=== PATIENT | female | born 1995 | race Caucasian/White ===

== ENCOUNTER 2019-11-30 08:45 | Inpatient (IN) | payer OTHER ==
[2019-11-30 10:28] LABS: BASO % 0.2 % (0-2.0); EOS % 0.1 % (0-4.5); HEMOGLOBIN 9.6 GM/dL (10.7-15.3); LYMPH % 21.6 % (8-40); MCH 26.9 pg (25.7-33.7); MEAN CELL VOLUME 83.9 fl (80-96); MEAN PLT VOLUME 9.1 fl (7.5-11.1); NEUT % 71.1 % (42.8-82.8); PLATELET COUNT 216 K/MM3 (134-434); RBC 3.58 M/mm3 (3.60-5.2)
[2019-11-30 10:59] LABS: ALBUMIN 2.4 g/dl (3.4-5.0); BILIRUBIN,TOTAL 0.3 mg/dL (0.2-1); BLOOD UREA NITROGEN 10.3 mg/dL (7-18); CALCIUM 8.2 mg/dL (8.5-10.1); CREATININE 0.5 mg/dL (0.55-1.3); POTASSIUM 4.6 mmol/L (3.5-5.1); TOT PROT 5.7 g/dl (6.4-8.2); URIC ACID 4.5 mg/dL (2.6-7.2)
[2019-11-30] MEDS ORDERED: ACETAMINOPHEN 325 MG TABLET (FP) PO ONE (11:21)
[2019-11-30] MEDS ORDERED: ACETAMINOPHEN 325 MG TABLET (FP) ONE (11:26)
[2019-11-30] MEDS ORDERED: DINOPROSTONE 10 MG VAGINAL SUPPOSITORY VG ONE (12:51)
[2019-11-30 14:16] VITALS: BMI 29.7
[2019-11-30 14:45] LABS: ACTIVATED PTT 26.3 SECONDS (25.2-36.5); INR 0.9 (0.83-1.09); PROTHROMBIN TIME (PATIENT) 10.6 SEC (9.7-13.0)
[2019-12-01] MEDS ORDERED: BUTORPHANOL TARTRATE 1 MG/ML VIAL IVPB ONE (00:06)
[2019-12-01] MEDS ORDERED: PROMETHAZINE HCL 25 MG/1 ML VIAL IVPB ONE (00:06)
[2019-12-01] MEDS ORDERED: DINOPROSTONE 10 MG VAGINAL SUPPOSITORY VG ONE (00:06)
--- NOTE | 2019-12-01 00:06 | PN ---
Progress Note, Labor Vaginal Exam #1 Labor Exam Date: 12/01/19 Labor Exam Time: 00:05 Heart Rate (range): Cat I Dilatation: 1 Effacement (%): 0 Amniotic Membrane Status: Intact Presentation: Vertex/Position Station: -3 Remarks: Pt uncomfortable Cervidil removed, new one placed Stadol now Discussed epidural going forward as she has a low pain tolerance Chao Sharp MD
[2019-12-01] MEDS ORDERED: BUTORPHANOL TARTRATE 2 MG/ML VIAL ONE (00:36)
[2019-12-01] MEDS ORDERED: PROMETHAZINE HCL 25 MG/1 ML VIAL ONE (00:36)
[2019-12-01] MEDS: ELECTROLYTE-148 SOLN 1,000 ML IV SCH ×2 (00:38→15:00)
--- NOTE | 2019-12-01 14:07 | PN ---
Progress Note (short form) - Note Progress Note: 24 yrs , 37.6/7 wks admitted 11/30/19 for Mild preclempsia induction of labpr x 2 cervidil were inserted 2nd cervidil removed at 2.00PM cx 1cm/40%/mi vx -3 pelvis adequate . edema Trace Reflexes normal Selected Entries 11/30/19 11/30/19 11/30/19 19:00 20:00 22:00 Temperature Blood Pressure 142/86 132/83 134/91 11/30/19 12/01/19 12/01/19 23:00 08:00 09:00 Temperature 98.4 F Blood Pressure 132/75 141/92 136/89 Laboratory Tests 11/30/19 11/30/19 11/30/19 09:48 09:58 09:58 Hgb 9.6 L Hct 30.0 L D Plt Count 216 Uric Acid 4.5 AST 20 ALT 18 Protein/Creatinin Ratio 0.5 pt does not have any headache. no c/o cramps . uc 8-10 min FHR 150 , cat-1 IMP : 38 weeks today ,mild preclempsia, HELLP work up neg , BP 124- 142 systolic / 79-92 diastolic , BP max 141/92, for induction of labpr Plan : I discussed options of continuing, induction process with cytotec followed by pitocin may take longer time , or option of c/section r/b/a explained pt wants to still continue trial of labor Rx po cytotec 25 mcg q 6h 4 doses
--- NOTE | 2019-12-01 14:59 | HP ---
Past Medical History - Primary Care Physician PCP:: David Rosario - Admission Chief Complaint: Headache History of Present Illness: Patient presented to the ER following episode of severe headache and elevated BPs in 150'2/90's at home. Patient reports measuring BPs at home for a couple of weeks due to prior episode of SCHILLING. Documented BP in ER on arrival was in mild range. Patient reports headache slightly improved. She denies CP, SOB, N/V, blurry vision/scotomata, epigastric pain, VB, LOF, and regular contractions. She reports +FM and denies taking anything at home for headache. 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 No: Bronchitis, Cancer, COPD, O2 Dependent, Pneumonia, Previously Intubated, Pulmonary Embolus, Pulmonary Fibrosis, Sleep Apnea, Other Gastrointestinal: No: Ascites, Cancer, Constipation, Crohn's Disease, D iverticulitis, Diverticulosis, Esophageal Varices, Gastritis, GERD, GI Bleed, Hemorrhoids, Hiatal Hernia, Inflamatory Bowel Disease, Irritable Bowel Disease, Pancreatitis, Peptic Ulcer Disease, Ulcerative Colitis, Other Hepatobiliary: No: Cirrhosis, Cholelithiasis, Cholecystitis, Choledocholithiasis, Hepatitis A, Hepatitis B, Hepatitis C, Other Renal/: No: Renal Failure, Renal Inusuff, BPH, Cancer, Hematuria, Hemodialysis, Neurogenic Bladder, Renal Calculi, UTI, Other Reproductive: No: Ectopic , Endometriosis, Fibroids, PID, Polycystic Ovary Syndrome, Postmenopausal, Other ...: 2 ...Para: 0 ...Term: 0 ...: 0 ...Spon : 1 ...Induced : 0 ...Living Children: 0 ...LMP: 03/10/19 ... Weeks Gestation by Dates: 37.6 ...EDC by Dates: 12/15/19 ...EDC by Sono: 12/21/19 Heme/Onc: No: Anemia, B12 Deficiency, Bleeding Disorder, Cancer, Current Chemotherapy, Current Radiation Therapy, Hemochromatosis, Hypercoaguable State, Myeloproliferative Synd, Sickle Cell Disease, Sickle Cell Trait, Thrombocytopenia, Other Infectious Disease: No: AIDS, C-Diff, Herpes Zoster, HIV, MRSA, STD's, Tuberculosis, VREF, Other Psych: No: Addictions, Anxiety, Bipolar, Depression, Panic, Psychosis, Schizophrenia, Other Musculoskeletal: No: Bursitis, Chronic low back pain, Hemiparesis, Hemiplegia, Osteoarthritis, Paraplegia, Other Rheumatology: No: Fibromyalgia, Gout, Lupus, Rheumatoid Arthritis, Sarcoidosis, Vasculitis, Other ENT: No: Allergic Rhinitis, Sinusitis, Other Endocrine: No: Letcher's Disease, Center's Disease, Diabetes Insipidus, Diabet es Mellitus, Hyperparathyroidism, Hyperthyroidism, Hypothyroidism, Osteopenia, SIADH, Other Dermatology: No: Basal Cell, Cellulitis, Eczema, Melanoma, Psoriasis, Squamous Cell, Other - Past Surgical History Hx Myomectomy: No Hx Transabdominal Cerclage: No Additional Surgical History: D&C for H/O molar - Smoking History Smoking history: Never smoked Have you smoked in the past 12 months: No Aproximately how many cigarettes per day: 0 - Alcohol/Substance Use Hx Alcohol Use: No - Social History History of Recent Travel: No Home Medications - Allergies Allergies/Adverse Reactions: Allergies Allergy/AdvReac Type Severity Reaction Status Date / Time Penicillins Allergy Severe Swelling Verified 11/30/19 09:43 - Home Medications Home Medications: Ambulatory Orders Ferrous Sulfate 1 tab PO DAILY 11/30/19 Pnv No.95/Ferrous Fum/Folic AC [ Caplet] 1 tab PO DAILY 11/30/19 Family Medical History Family History: Unremarkable Review of Systems Findings/Remarks: mild temporal headache bilaterally - Review of Systems Constitutional: reports: No Symptoms Eyes: reports: No Symptoms HENT: reports: No Symptoms Neck: reports: No Symptoms Cardiovascular: reports: No Symptoms Respiratory: reports: No Symptoms Gastrointestinal: reports: No Symptoms Genitourinary: reports: No Symptoms Breasts: reports: No Symptoms Reported Musculoskeletal: reports: No Symptoms Integumentary: reports: No Symptoms Neurological: reports: No Symptoms Endocrine: reports: No Symptoms Hematology/Lymphatic: reports: No Symptoms Psychiatric: reports: No Symptoms Physical Exam - Maternity Vital Signs: Vital Signs Temperature 97.9 F 11/30/19 09:59 Pulse Rate 89 11/30/19 12:00 Respiratory Rate 17 11/30/19 12:00 Blood Pressure 124/84 11/30/19 12:00 O2 Sat by Pulse Oximetry (%) 100 11/30/19 12:00 Constitutional: Yes: No Distress HENT: Yes: Atraumatic Neck: Yes: Supple Cardiovascular: Yes: Regular Rate and Rhythm - Abdominal Exam/OB Number of Fetuses: Single Presentation: Vertex Contractions: Yes Regularity: Irregular Intensity: Unaware Monitor Mode: External Heart Rate (range): 130 Category: I Accelerations: Uniform Decelerations: None - Vaginal Exam/OB Vaginal Bleeding: No Speculum Exam: No Dilatation (cm): 0.5 Effacement (%): 30 Amniotic Membrane Status: Intact Presentation: Vertex/Position (by clement's) Station: -3 (cervidil placed in vaginal vault) - Physical Exam Musculoskeletal: Yes: WNL Extremities: Yes: WNL Edema: Yes Edema: LLE: Trace, RLE: Trace Integumentary: Yes: WNL Deep Tendon Reflex Grade: Normal +2 (no clonus noted) ...Motor Strength: WNL Psychiatric: Yes: Alert, Oriented - Labs Lab Results: CBC, BMP 11/30/19 09:58 11/30/19 09:58 Imaging - Results Ultrasound: Report Reviewed Problem List - Problems (1) Pre-eclampsia affecting , antepartum Code(s): O14.90 - UNSPECIFIED PRE-ECLAMPSIA, UNSPECIFIED TRIMESTER Assessment/Plan 24 y/o @ 37.6wks by LMP congruent with 1st trimester sono presented to the hospital following new onset of severe headache and hypertensive episode. BPs in the hospital are in normal to mild range and mild headache. PEC labs revealed mild anemia and P/C of 0.5. Patient denies having elevated BPs in the past while self-measuring at home. Presentation is consistent with PEC without sevre features. summary reviewed and EFW is 3000g as per recent official sono. Patient was counseled regarding diagnosis as well as indication for IOL. induction of labor explained along with its risks and complications. All questions answered and induction initiated. -Monitor BP -Continuous monitoring -Repeat PEC labs and consider PO antihypertensive as indicated -PO tylenol PRN for SCHILLING
--- NOTE | 2019-12-01 15:08 | PDOC ---
Documentation entered by Dania García SCRIBE, acting as scribe for Jeremy Coffman MD. Jeremy Coffman MD: This documentation has been prepared by the Ricky pat Brenda, SCRIBE, under my direction and personally reviewed by me in its entirety. I confirm that the documentation accurately reflects all work, treatment, procedures, and medical decision making performed by me. History of Present Illness - General Chief Complaint: Blood Pressure Problem Stated Complaint: HYPERTENSION Time Seen by Provider: 11/30/19 08:31 History Source: Patient Exam Limitations: No Limitations - History of Present Illness Initial Comments: 11/30/19 08:38 The patient is a 24 year old female 37 weeks with a significant PMH of mild asthma who presents to the emergency department for hua;uation of hypertension. Per patient she was seen by her OBGYN yesterday who told her that her BP was borderline high and she was told to observe it. [place]ne notes that during the evening, she began feeling a headache and when she checked her BP, it was high (150/94). Patient then called L&D and was told to come in. First . The patient denies chest pain, shortness of breath and dizziness. Denies fever, chills, nausea, vomiting, diarrhea and constipation. Denies dysuria, frequency, urgency and hematuria. Allergies: NKA Social history: No reported hx of tobacco use, alcohol use or illicit drug use. ObGYN: Chiquita Past History - Medical History Allergies/Adverse Reactions: Allergies Allergy/AdvReac Type Severity Reaction Status Date / Time Penicillins Allergy Severe Swelling Verified 11/30/19 09:43 Home Medications: Ambulatory Orders Ferrous Sulfate 1 tab PO DAILY 11/30/19 Pnv No.95/Ferrous Fum/Folic AC [ Caplet] 1 tab PO DAILY 11/30/19 Acetaminophen [Tylenol] 325 mg PO Q6H PRN #30 capsule MDD 5 12/04/19 Ferrous Sulfate [Feosol] 325 mg PO DAILY #30 tablet 12/04/19 Ibuprofen 600 mg PO Q6H PRN #30 tablet 12/04/19 COPD: No - Reproductive History Is Patient Now?: Yes - Psycho-Social/Smoking History Smoking Status: No Smoking History: Never smoked Have you smoked in the past 12 months: No Number of Cigarettes Smoked Daily: 0 Information on smoking cessation initiated: No - Substance Abuse Hx (Audit-C & DAST Scrn) How often the patient has a drink containing alcohol: Never Score: In Men: 4 or > Positive; In Women: 3 or > Positive: 0 Screen Result (Pos requires Nsg. Audit-10AR): Negative In the last yr the pt used illegal drug/Rx for NonMed reason: No Score: Yes response is considered Positive: 0 Screen Result (Positive result requires Nsg. DAST-10): Negative Review of Systems - Review of Systems Able to Perform ROS?: Yes Comments:: 11/30/19 08:40 CONSTITUTIONAL: No fever, no chills, no fatigue EYES: No visual changes ENT: No ear pain, no sore throat CARDIOVASCULAR: No chest pain, no palpitations RESPIRATORY: No cough, no SOB GI: No abdominal pain, no nausea, no vomiting, no constipation, no diarrhea GENITOURINARY: No dysuria, no frequency, no hematuria MUSKULOSKELETAL: No backpain, no joint pain, no myalgias SKIN: No rash NEURO: (+) headache *Physical Exam - Vital Signs Last Vital Signs Temp Pulse Resp BP Pulse Ox 98.6 F 87 18 146/96 100 11/30/19 08:01 11/30/19 08:01 11/30/19 08:01 11/30/19 08:01 11/30/19 08:01 - Physical Exam 11/30/19 08:41 CONSTITUTIONAL: Well-appearing; well-nourished; in no apparent distress HEAD: Normocephalic; atraumatic EYES: PERRL; EOM intact ENMT: External appears normal; normal oropharynx NECK: Supple; non-tender; no cervical lymphadenopathy CARD: Normal S1, S2; no murmurs, rubs, or gallops RESP: Normal chest excursion with respiration; breath sounds clear and equal bilaterally; no wheezes, rhonchi, or rales ABD: Soft, non-distended; non-tender; no palpable organomegaly, no palpable hernias EXT: Normal ROM in all four extremities; non-tender to palpation; distal pulses intact SKIN: Warm, dry, no rash NEURO: No focal neurological deficiencies. ED Treatment Course - LABORATORY CBC & Chemistry Diagram: 12/03/19 07:27 11/30/19 09:58 Discharge - Discharge Information Problems reviewed: Yes Clinical Impression/Diagnosis: Pre-eclampsia affecting , antepartum Condition: Stable Disposition: HOME - Follow up/Referral - Patient Discharge Instructions - Post Discharge Activity
[2019-12-01] MEDS ORDERED: OXYTOCIN 30 UNITS in 0.9% NS 30 UNIT/500 ML INFUS.BAG IVPB ONE (15:29)
[2019-12-01] MEDS: OXYTOCIN 30 UNITS in 0.9% NS 30 UNIT/500 ML INFUS.BAG IVPB SCH (16:00)
[2019-12-01] MEDS ORDERED: MISOPROSTOL 100 MCG TABLET PO SCH (17:30)
--- NOTE | 2019-12-01 20:55 | PN ---
Progress Note (short form) - Note Progress Note: cx 1 to 2 50 vx -3 mi , fhr cat 1 irregular contraction, on pitocin , wants to cont. induction
--- NOTE | 2019-12-01 20:56 | PN ---
Progress Note (short form) - Note Progress Note: cx 1 to 2 50 vx -3 mi, fhr cat 1, wants to cont induction on pitocin, comfortable
[2019-12-02] MEDS ORDERED: PROMETHAZINE HCL 25 MG/1 ML VIAL IVPUSH ONE ×2 (00:43→04:30)
[2019-12-02] MEDS ORDERED: BUTORPHANOL TARTRATE 1 MG/ML VIAL IVPUSH ONE ×2 (00:43→04:30)
[2019-12-02] MEDS ORDERED: BUTORPHANOL TARTRATE 2 MG/ML VIAL ONE ×2 (00:43→04:13)
[2019-12-02] MEDS ORDERED: PROMETHAZINE HCL 25 MG/1 ML VIAL ONE ×2 (00:43→04:13)
[2019-12-02] MEDS: ELECTROLYTE-148 SOLN 1,000 ML IV SCH ×3 (07:01→18:41)
[2019-12-02] MEDS ORDERED: PCA PUMP NR ONE (07:17)
[2019-12-02] MEDS ORDERED: FENTANYL/BUPIVACAINE/NS/PF - PCEA - 50 ML DISP.SYRIN EP ONE ×2 (07:17→11:53)
--- NOTE | 2019-12-02 07:21 | PN ---
Progress Note (short form) - Note Progress Note: cx 5 cm 80 vx -2 srom, clear , fhr cat 1, regular contraction wants epidural
[2019-12-02] MEDS ORDERED: NALOXONE HCL 0.4 MG/ML VIAL IVPUSH PRN (07:25)
[2019-12-02] MEDS: FENTANYL/BUPIVACAINE/NS/PF - PCEA - 50 ML DISP.SYRIN EP SCH (07:55)
[2019-12-02] MEDS ORDERED: BUPIVACAINE HCL/PF 0.25% (2.5MG/ML) 10 ML VIAL ONE ×2 (10:43→13:06)
[2019-12-02] MEDS ORDERED: OXYTOCIN 20 UNITS in 0.9% NS 20 UNIT/1,000 ML INFUS.BAG IV ONE ×2 (13:30→18:00)
[2019-12-02] MEDS ORDERED: BISACODYL 10 MG SUPP.RECT RC PRN (14:51)
[2019-12-02] MEDS ORDERED: WITCH HAZEL 50% (TUCKS) 40 PAD/JAR PAD TP PRN (14:51)
[2019-12-02] MEDS ORDERED: METHYLERGONOVINE MALEATE 0.2 MG/1 ML AMP IM PRN (14:51)
[2019-12-02] MEDS ORDERED: ACETAMINOPHEN 325 MG TABLET (FP) PO PRN (14:51)
[2019-12-02] MEDS ORDERED: BENZOCAINE 20% 57 GM BOTTLE TP PRN (14:51)
[2019-12-02] MEDS ORDERED: BENZOCAINE 28 GM HEMORRHOIDAL OINTMENT TP PRN (14:51)
[2019-12-02] MEDS: ACETAMINOPHEN 325 MG TABLET (FP) PO PRN (14:55)
[2019-12-02] MEDS: IBUPROFEN 600 MG TABLET (FP) PO PRN (14:55)
--- NOTE | 2019-12-02 14:58 | PN ---
Delivery - Delivery Vaginal Delivery: Spontaneous Type of Anesthesia: Local, Epidural Episiotomy/Laceration: 2nd degree (cx full ,head on perinium , head delivered , ev, no cord , ant. and post, shoulder with no difficulty , live baby boy 9/9 , placenta complete , 2nd degree extension repaired with local anesthesia and 20 chromic . ebl 400c, no complication) Delivery, Single - Feeding Plan Initial Plan: Elected not to breastfeed exclusively throughout hospitalization
[2019-12-02] MEDS ORDERED: D5W-LR W/ 20 UNITS OXYTOCIN 20 UNIT/1,000 ML INFUS.BAG IV SCH (15:00)
[2019-12-02 15:42] LABS: CORD BASE EXCESS -8.4 mmol/L (0-2); CORD HCO3 17.2 mmHg (20-29); CORD PCO2 36.3 mmHg (30-78); CORD pH 7.294 (7.14-7.44)
[2019-12-02 15:44] LABS: CORD BASE EXCESS -8.2 mmol/L (0-2); CORD HCO3 20.5 mmHg (20-29); CORD PCO2 54.7 mmHg (30-78); CORD pH 7.191 (7.14-7.44)
[2019-12-02] MEDS: OXYTOCIN 30 UNITS in 0.9% NS 30 UNIT/500 ML INFUS.BAG IVPB SCH (21:15)
[2019-12-02] MEDS: FERROUS SO4 325 MG TABLET (FP) PO SCH (21:15)
--- NOTE | 2019-12-03 06:08 | PN ---
Post Progress Note - Subjective Subjective: c/o cramps no c/o headache voiding without difficulty Post Day: 1 Type of Delivery: Vital Signs: Vital Signs Temperature 98.2 F 12/03/19 01:51 Pulse Rate 92 H 12/03/19 01:51 Respiratory Rate 18 12/03/19 01:51 Blood Pressure 137/89 12/03/19 01:51 O2 Sat by Pulse Oximetry (%) 98 12/03/19 01:51 Selected Entries 12/02/19 12/02/19 12/02/19 16:00 18:00 21:02 Blood Pressure 114/75 131/89 131/76 Breast Exam: Yes: Soft, Other (aattempting Bf , bottle feeding also). No: Engorged Uterus: Yes: Fundus Firm, Fundus below umbilicus, Non-tender Lochia: Yes: Rubra Lochia, amount: Moderate Extremities: Yes: Calves non-tender Perineum: Yes: Laceration (c/o soreness) Activity: Ambulating - Labs Labs: CBC WBC 8.0 K/mm3 (4.0-10.0) 11/30/19 09:58 RBC 3.58 M/mm3 (3.60-5.2) L 11/30/19 09:58 Hgb 9.6 GM/dL (10.7-15.3) L 11/30/19 09:58 Hct 30.0 % (32.4-45.2) L D 11/30/19 09:58 MCV 83.9 fl (80-96) 11/30/19 09:58 MCH 26.9 pg (25.7-33.7) 11/30/19 09:58 MCHC 32.0 g/dl (32.0-36.0) 11/30/19 09:58 RDW 14.0 % (11.6-15.6) 11/30/19 09:58 Plt Count 216 K/MM3 (134-434) 11/30/19 09:58 MPV 9.1 fl (7.5-11.1) D 11/30/19 09:58 Absolute Neuts (auto) 5.7 K/mm3 (1.5-8.0) 11/30/19 09:58 Neutrophils % 71.1 % (42.8-82.8) D 11/30/19 09:58 Lymphocytes % 21.6 % (8-40) D 11/30/19 09:58 Monocytes % 7.0 % (3.8-10.2) 11/30/19 09:58 Eosinophils % 0.1 % (0-4.5) 11/30/19 09:58 Basophils % 0.2 % (0-2.0) 11/30/19 09:58 Nucleated RBC % 0 % (0-0) 11/30/19 09:58 Problem List - Problems (1) Encounter for care after hospital delivery Code(s): Z39.2 - ENCOUNTER FOR ROUTINE FOLLOW-UP Assessment/Plan s/p , post induction of labor due to mold pec asymptomatic, stable , did not reqd any antihypertensive meds pp cbc pending discharge tomorrow.
[2019-12-03] MEDS: IBUPROFEN 600 MG TABLET (FP) PO PRN ×2 (06:28→19:47)
[2019-12-03] MEDS: ACETAMINOPHEN 325 MG TABLET (FP) PO PRN ×2 (06:29→19:48)
[2019-12-03] MEDS: FENTANYL/BUPIVACAINE/NS/PF - PCEA - 50 ML DISP.SYRIN EP SCH (07:56)
[2019-12-03 07:57] LABS: BASO % 0.1 % (0-2.0); EOS % 0.2 % (0-4.5); HEMATOCRIT 24.1 % (32.4-45.2); HEMOGLOBIN 7.6 GM/dL (10.7-15.3); LYMPH % 11.4 % (8-40); MCH 26.6 pg (25.7-33.7); MCHC 31.8 g/dl (32.0-36.0); MEAN CELL VOLUME 83.9 fl (80-96); MEAN PLT VOLUME 9.1 fl (7.5-11.1); MONO % 4.8 % (3.8-10.2); NEUT % 83.5 % (42.8-82.8); PLATELET COUNT 183 K/MM3 (134-434); RBC 2.87 M/mm3 (3.60-5.2); RDW 14.5 % (11.6-15.6); WHITE BLOOD COUNT 13.2 K/mm3 (4.0-10.0)
[2019-12-03] MEDS: FERROUS SO4 325 MG TABLET (FP) PO SCH ×2 (09:12→21:11)
[2019-12-03] MEDS: PRENATAL VITAMINS W/ FOLIC ACID TABLET (FP) PO SCH (09:12)
[2019-12-03] MEDS ORDERED: SENNOSIDES/DOCUSATE COMBO (SENNA PLUS) TABLET (UD) PO PRN (22:00)
--- NOTE | 2019-12-04 07:45 | DS ---
Physical Examination Vital Signs: Vital Signs Temperature 99.0 F 12/03/19 19:50 Pulse Rate 88 12/03/19 19:50 Respiratory Rate 20 12/03/19 19:50 Blood Pressure 134/84 12/03/19 19:50 O2 Sat by Pulse Oximetry (%) 96 12/03/19 14:00 Findings/Remarks: ambulating, tolerating PO, lochia decreased, voiding, no SCHILLING/vision changes, no CP/SOB, no nausea/vomiting, no tingling/numbness Constitutional: Yes: Well Nourished HENT: Yes: Atraumatic Neck: Yes: Supple Cardiovascular: Yes: Regular Rate and Rhythm Respiratory: Yes: Regular Gastrointestinal: Yes: Soft ...Rectal Exam: Yes: Other Renal/: Yes: Other Breast(s): Yes: Other Musculoskeletal: Yes: WNL Extremities: Yes: WNL Edema: Yes Edema: LLE: Trace, RLE: Trace Integumentary: Yes: WNL Wound/Incision: Yes: Well Approximated Neurological: Yes: Alert, Oriented ...Motor Strength: WNL Psychiatric: Yes: Alert, Oriented Labs: CBC, BMP 12/03/19 07:27 11/30/19 09:58 Discharge Summary Problems reviewed: Yes Reason For Visit: ADMISION OF LABOR & PRECLAMPSIA Current Active Problems Encounter for care after hospital delivery (Acute) Pre-eclampsia affecting , antepartum (Acute) Procedures: Principal: Induction of labor and vaginal delivery for preeclampsia without severe features. Hospital Course: Uncomplicated recovery with BPs mostly in normal range with mild borderline readings. Patient is asymptomatic on day of discharge not requiring Po antihype rtensives Health Concerns: PEC and anemia Plan of Treatment: Follow up within a week at health center for BP check. Daily PO iron Condition: Stable - Instructions Diet, Activity, Other Instructions: Regular Diet Follow up in one week for a blood pressure check Referrals: Krzysztof Barroso MD [Staff Physician] - Lisa Hernandez MD [Staff Physician] - Disposition: HOME - Home Medications Comprehensive Discharge Medication List: Ambulatory Orders Ferrous Sulfate 1 tab PO DAILY 11/30/19 Pnv No.95/Ferrous Fum/Folic AC [ Caplet] 1 tab PO DAILY 11/30/19
[2019-12-04] MEDS: ELECTROLYTE-148 SOLN 1,000 ML IV SCH (08:21)
[2019-12-04] MEDS: FENTANYL/BUPIVACAINE/NS/PF - PCEA - 50 ML DISP.SYRIN EP SCH (08:46)
[2019-12-04] MEDS: IBUPROFEN 600 MG TABLET (FP) PO PRN (08:55)
[2019-12-04] MEDS: ACETAMINOPHEN 325 MG TABLET (FP) PO PRN (08:55)
[2019-12-04] MEDS: PRENATAL VITAMINS W/ FOLIC ACID TABLET (FP) PO SCH (09:04)
[2019-12-04] MEDS: FERROUS SO4 325 MG TABLET (FP) PO SCH (09:04)
[2019-12-04 11:20] VITALS: BP 133/87; PULSE 90; TEMP 99.2
== END 2019-12-04 11:30 | disposition home or self-care (01) | DRG 560 ==
LOC: JDEL 08:45 → JLDR 12:35 → UNDOADMIN 12:35 → EDSTATUS 12-01 14:37 → JLDR 12-01 15:13 → J3W 12-02 18:11
PROVIDERS: ADMIT Student in an Organized Health Care Education/Training Program; ATTEND Obstetrics & Gynecology
PROC: 0KQM0ZZ Repair Perineum Muscle, Open Approach (ICD-10-PCS; principal; 2019-12-02)
PROC: 10E0XZZ Delivery of Products of Conception, External Approach (ICD-10-PCS; 2019-12-02)
DX: O14.04 Mild to moderate pre-eclampsia, complicating childbirth (principal); O70.1 Second degree perineal laceration during delivery; Z3A.38 38 weeks gestation of pregnancy; Z37.0 Single live birth
CPT/HCPCS: 36415; 36600; 59409; 80053; 82565; 82803; 83615; 84156; 84550; 85025; 85610; 85730; 86780; 86850; 86900; 86901; U0003

== ENCOUNTER 2020-12-18 09:49 | Emergency (ER) | payer OTHER ==
[2020-12-18 09:59] VITALS: BP 137/96; PULSE 86; TEMP 99.1; BMI 25.4
[2020-12-18 10:41] LABS: EPITHELIAL CELLS MANY /hpf
[2020-12-18 10:47] LABS: BASO % 2.1 % (0-2.0); EOS % 1.1 % (0-4.5); HEMOGLOBIN 12.8 GM/dl (10.7-15.3); LYMPH % 28.3 % (8-40); MCH 28.8 pg (25.7-33.7); MCHC 32.9 g/dl (32.0-36.0); MEAN CELL VOLUME 87.7 fl (80-96); MEAN PLT VOLUME 8.1 fl (7.5-11.1); MONO % 5.3 % (3.8-10.2); NEUT % 63.2 % (42.8-82.8); PLATELET COUNT 347 10^3/uL (134-434); RBC 4.45 M/mm3 (3.60-5.2); RDW 12.4 % (11.6-15.6); WHITE BLOOD COUNT 8.3 K/mm3 (4.0-10.8)
[2020-12-18 10:52] LABS: ACTIVATED PTT 26.4 SECONDS (25.2-36.5)
[2020-12-18 10:55] LABS: BILIRUBIN,TOTAL 0.4 mg/dl (0.2-1); CALCIUM 8.8 mg/dl (8.5-10); CREATININE 0.5 mg/dl (0.55-1.3); TOT PROT 7.4 g/dl (6.4-8.2)
[2020-12-18 10:57] LABS: INR 1.02 (0.82-1.09); PROTHROMBIN TIME (PATIENT) 11.4 SEC (10.2-13.0)
== END 2020-12-18 13:01 | disposition home or self-care (01) ==
LOC: FER 09:49
DX: O20.0 Threatened abortion (principal); Z3A.00 Weeks of gestation of pregnancy not specified
CPT/HCPCS: 36415; 76801-TC; 76817-TC; 80053; 81003; 81015; 84702; 85025; 85610; 85730; 87086; 99284-25

== ENCOUNTER 2020-12-20 10:25 | Emergency (ER) | payer OTHER ==
[2020-12-20 10:49] VITALS: BP 119/75; PULSE 81; TEMP 99.1; BMI 25.4
== END 2020-12-20 12:37 | disposition home or self-care (01) ==
LOC: FER 10:25
DX: O03.9 Complete or unspecified spontaneous abortion without complication (principal)
CPT/HCPCS: 36415; 84702; 99283-25

== ENCOUNTER 2022-09-28 19:05 | Inpatient (IN) | payer OTHER ==
[2022-09-28 20:30] VITALS: BMI 31.0
[2022-09-28] MEDS ORDERED: OXYTOCIN 30 UNITS in 0.9% NS 30 UNIT/500 ML INFUS.BAG IVPB ONE (21:31)
[2022-09-28] MEDS ORDERED: ELECTROLYTE-148 SOLN 1,000 ML IV SCH (22:15)
[2022-09-28] MEDS ORDERED: OXYTOCIN 30 UNITS in 0.9% NS 30 UNIT/500 ML INFUS.BAG IVPB SCH (22:15)
[2022-09-28 23:08] LABS: BASO % 0.1 % (0-2.0); EOS % 0.3 % (0-4.5); HEMATOCRIT 30.8 % (32.4-45.2); HEMOGLOBIN 10.1 GM/dL (10.7-15.3); LYMPH % 26.5 % (8-40); MCH 26.2 pg (25.7-33.7); MCHC 32.9 g/dl (32.0-36.0); MEAN CELL VOLUME 79.5 fl (80-96); MEAN PLT VOLUME 8.2 fl (7.5-11.1); MONO % 6.9 % (3.8-10.2); NEUT % 66.2 % (42.8-82.8); PLATELET COUNT 238 10^3/uL (134-434); RBC 3.88 M/mm3 (3.60-5.2); RDW 16.3 % (11.6-15.6); WHITE BLOOD COUNT 9.1 K/mm3 (4.0-10.0)
[2022-09-28 23:23] LABS: INR 0.94 (0.83-1.09); PROTHROMBIN TIME (PATIENT) 10.9 SEC (9.7-13.0)
[2022-09-28 23:26] LABS: ACTIVATED PTT 25.8 SECONDS (25.2-36.5); POTASSIUM 3.7 mmol/L (3.5-5.1)
[2022-09-28 23:29] LABS: ALBUMIN 2.6 g/dl (3.4-5.0); BLOOD UREA NITROGEN 8.5 mg/dL (7-18); CALCIUM 8.3 mg/dL (8.5-10.1)
[2022-09-28 23:32] LABS: CREATININE 0.5 mg/dL (0.55-1.3); URIC ACID 4.1 mg/dL (2.6-7.2)
[2022-09-28 23:34] LABS: BILIRUBIN,TOTAL 0.2 mg/dL (0.2-1); TOT PROT 6.3 g/dl (6.4-8.2)
[2022-09-29 01:26] LABS: EPI CELLS >36 /uL (0-25.1); HYALINE CASTS 0 /uL (0-3.1); URINE APPEARANCE CLEAR; URINE BACTERIA 278 /uL (0-1359); URINE BILIRUBIN NEGATIVE (NEGATIVE); URINE COLOR YELLOW; URINE GLUCOSE (UA) NEGATIVE (NEGATIVE); URINE KETONE NEGATIVE (NEGATIVE); URINE LEUK ESTERASE NEGATIVE (NEGATIVE); URINE NITRITE NEGATIVE (NEGATIVE); URINE PROTEIN 2+ (NEGATIVE); URINE RBC 4 /uL (0-23.9); URINE UROBILINOGEN 0.2 mg/dL (0.2-1.0); URINE WBC 19 /uL (0-25.8)
[2022-09-29] MEDS ORDERED: CLINDAMYCIN 900 MG PREMIX IVPB 900 MG/50 ML BAG IVPB ONE ×2 (03:28→10:51)
[2022-09-29] MEDS: CLINDAMYCIN 900 MG PREMIX IVPB 900 MG/50 ML BAG IVPB SCH ×3 (03:30→18:21)
[2022-09-29] MEDS ORDERED: FENTANYL/BUPIVACAINE/NS/PF - PCEA - 50 ML DISP.SYRIN EP ONE ×3 (05:16→13:50)
[2022-09-29] MEDS ORDERED: FENTANYL CITRATE/PF 50 MCG/ML VIAL ONE (05:27)
[2022-09-29] MEDS: FENTANYL/BUPIVACAINE/NS/PF - PCEA - 50 ML DISP.SYRIN EP SCH (05:55)
[2022-09-29] MEDS ORDERED: NALOXONE HCL 0.4 MG/ML VIAL IVPUSH PRN (06:13)
[2022-09-29 11:03] LABS: POC NITRAZINE POS
[2022-09-29] MEDS ORDERED: OXYTOCIN 20 UNITS in 0.9% NS 20 UNIT/1,000 ML INFUS.BAG IV ONE (14:11)
[2022-09-29] MEDS ORDERED: CARBOPROST TROMETHAMINE 250 MCG/ML AMPUL IM ONE (14:40)
[2022-09-29] MEDS: oxyCODONE HCL 5 MG TABLET PO PRN ×2 (14:50→22:28)
[2022-09-29] MEDS ORDERED: IBUPROFEN 600 MG TABLET (FP) PO ONE (14:58)
[2022-09-29] MEDS ORDERED: BENZOCAINE 28 GM HEMORRHOIDAL OINTMENT TP PRN (14:59)
[2022-09-29] MEDS ORDERED: BISACODYL 10 MG SUPP.RECT RC PRN (14:59)
[2022-09-29] MEDS ORDERED: BENZOCAINE 20% 57 GM BOTTLE TP PRN (14:59)
[2022-09-29] MEDS ORDERED: ACETAMINOPHEN 325 MG TABLET (FP) PO PRN (14:59)
[2022-09-29] MEDS ORDERED: oxyCODONE HCL 5 MG TABLET ONE (14:59)
[2022-09-29] MEDS ORDERED: WITCH HAZEL 50% (TUCKS) 40 PAD/JAR PAD TP PRN (14:59)
[2022-09-29] MEDS ORDERED: IBUPROFEN 600 MG TABLET (FP) PO PRN (14:59)
[2022-09-29] MEDS ORDERED: OXYTOCIN 20 UNITS in 0.9% NS 20 UNIT/1,000 ML INFUS.BAG IV SCH (15:00)
[2022-09-30] MEDS: oxyCODONE HCL 5 MG TABLET PO PRN (05:23)
[2022-09-30 07:11] LABS: BASO % 0.1 % (0-2.0); EOS % 0.2 % (0-4.5); HEMATOCRIT 22.1 % (32.4-45.2); LYMPH % 17.8 % (8-40); MCH 25.8 pg (25.7-33.7); MCHC 31.6 g/dl (32.0-36.0); MEAN CELL VOLUME 81.7 fl (80-96); MEAN PLT VOLUME 8.5 fl (7.5-11.1); MONO % 5.8 % (3.8-10.2); NEUT % 76.1 % (42.8-82.8); PLATELET COUNT 179 10^3/uL (134-434); RBC 2.71 M/mm3 (3.60-5.2); RDW 16.3 % (11.6-15.6); WHITE BLOOD COUNT 12.3 K/mm3 (4.0-10.0)
[2022-09-30] MEDS: PRENATAL VITAMINS W/ FOLIC ACID TABLET (FP) PO SCH (09:43)
[2022-09-30] MEDS: FENTANYL/BUPIVACAINE/NS/PF - PCEA - 50 ML DISP.SYRIN EP SCH (21:27)
[2022-09-30] MEDS ORDERED: SENNOSIDES/DOCUSATE COMBO (SENNA PLUS) TABLET (UD) PO PRN (22:00)
[2022-10-01 07:20] LABS: BASO % 0.1 % (0-2.0); EOS % 1.5 % (0-4.5); HEMATOCRIT 21.9 % (32.4-45.2); HEMOGLOBIN 7.2 GM/dL (10.7-15.3); MCH 26.9 pg (25.7-33.7); MCHC 32.8 g/dl (32.0-36.0); MEAN CELL VOLUME 81.9 fl (80-96); MEAN PLT VOLUME 8.3 fl (7.5-11.1); MONO % 6.3 % (3.8-10.2); NEUT % 64.1 % (42.8-82.8); PLATELET COUNT 205 10^3/uL (134-434); RBC 2.68 M/mm3 (3.60-5.2); RDW 16.1 % (11.6-15.6); WHITE BLOOD COUNT 9.8 K/mm3 (4.0-10.0)
[2022-10-01] MEDS: PRENATAL VITAMINS W/ FOLIC ACID TABLET (FP) PO SCH (10:08)
[2022-10-01 11:25] VITALS: BP 132/83; PULSE 70; RESP 16; TEMP 98.7
== END 2022-10-01 11:30 | disposition home or self-care (01) | DRG 560 ==
LOC: JLDR 19:05 → J3W 09-29 16:30
PROVIDERS: ADMIT Obstetrics & Gynecology; ATTEND Obstetrics & Gynecology
PROC: 10E0XZZ Delivery of Products of Conception, External Approach (ICD-10-PCS; principal; 2022-09-29)
PROC: 0KQM0ZZ Repair Perineum Muscle, Open Approach (ICD-10-PCS; 2022-09-29)
PROC: 0W8NXZZ Division of Female Perineum, External Approach (ICD-10-PCS; 2022-09-29)
DX: O14.04 Mild to moderate pre-eclampsia, complicating childbirth (principal); O48.0 Post-term pregnancy; Z3A.40 40 weeks gestation of pregnancy; O70.1 Second degree perineal laceration during delivery; O99.820 Streptococcus B carrier state complicating pregnancy; Z37.0 Single live birth
CPT/HCPCS: 36415; 59025; 80053; 81003; 83986-QW; 84550; 85025; 85610; 85730; 86780; 86850; 86900; 86901; 87635